=== PATIENT | female | born 1975 | race Caucasian/White ===

== ENCOUNTER 2017-11-23 18:25 | Outpatient (CLI) | payer OTHER ==
[2017-11-23 20:50] LABS: RUPTURE FETAL MEMBRANES NEGATIVE (NEGATIVE)
== END 2017-11-23 21:30 | disposition home or self-care (01) ==
LOC: OBT 18:25 → L-D 18:26 → OBT 21:30
DX: O42.92 Full-term premature rupture of membranes, unspecified as to length of time between rupture and onset of labor (principal); Z3A.38 38 weeks gestation of pregnancy
CPT/HCPCS: 76818; 84112

== ENCOUNTER 2017-11-30 05:09 | Inpatient (IN) | payer OTHER ==
[2017-11-30] MEDS: LACTATED RINGER'S 1,000 ML IV ×4 (06:17→21:19)
[2017-11-30] MEDS: AMPICILLIN 2 GM/NS (PMX) 100 ML IV (06:18)
[2017-11-30 06:29] LABS: ADD MAN DIFF? NO
[2017-11-30] MEDS ORDERED: MISOPROSTOL 200 MCG TAB PR ×2 (06:30→12:30)
[2017-11-30] MEDS ORDERED: OXYTOCIN 30 UNITS/LR 500 ML IV ×2 (06:30→12:30)
[2017-11-30] MEDS ORDERED: METHYLERGONOVINE 0.2 MG INJ IM ×2 (06:30→12:30)
[2017-11-30] MEDS ORDERED: CEFAZOLIN 2 GM/50 ML (PMX) 50 ML IV (06:30)
[2017-11-30] MEDS ORDERED: CARBOPROST 250 MCG INJ IM ×2 (06:30→12:30)
[2017-11-30 06:39] LABS: BASOPHILS % 0.2 % (0.0-2.0); EOSINOPHILS # 0.1 10^3/ul (0.0-0.5); HEMATOCRIT 35.2 % (37.0-47.0); HEMOGLOBIN 11.8 g/dl (12.0-16.0); LYMPHOCYTES # 1.5 10^3/ul (0.8-2.9); LYMPHOCYTES % 15.4 % (15.0-51.0); MEAN CORPUSCULAR HEMOGLOBIN 29.1 pg (29.0-33.0); MEAN CORPUSCULAR HGB CONC 33.5 g/dl (32.0-37.0); MEAN CORPUSCULAR VOLUME 86.9 fl (82.0-101.0); MEAN PLATELET VOLUME 11.5 fl (7.4-10.4); MONOCYTE # 0.9 10^3/ul (0.3-0.9); MONOCYTES % 9.4 % (0.0-11.0); NEUTROPHIL # 7.3 10^3/ul (1.6-7.5); NEUTROPHILS % 73.1 % (39.0-77.0); PLATELET COUNT 123 10^3/UL (140-415); RED BLOOD COUNT 4.05 10^6/ul (4.20-5.40); RED CELL DISTRIBUTION WIDTH 15.9 % (11.5-14.5)
[2017-11-30] MEDS ORDERED: OXYTOCIN 30 UNITS/LR 500 ML BAG IV (07:00)
[2017-11-30 07:33] LABS: AMPHETAMINE/METHAMPHETAMINE Negative (NEGATIVE); BARBITURATES Negative (NEGATIVE); BENZODIAZEPINES Negative (NEGATIVE); CANNABINOIDS Negative (NEGATIVE); COCAINE Negative (NEGATIVE); OPIATES Negative (NEGATIVE)
[2017-11-30 07:38] LABS: INR 0.92; PARTIAL THROMBOPLASTIN TIME 29.7 Sec (25.0-35.0); PROTIME 12.4 Sec (11.9-14.9)
[2017-11-30] MEDS ORDERED: morphine SULFATE/PF (10 MG/10 ML) INJ (08:11)
[2017-11-30] MEDS ORDERED: ONDANSETRON 4 MG INJ (08:11)
[2017-11-30] MEDS ORDERED: PHENYLephrine (100 MCG/ML) 5ML SYG ×3 (08:11→09:02)
[2017-11-30] MEDS ORDERED: OXYTOCIN 10 UNIT INJ (08:11)
[2017-11-30] MEDS ORDERED: FENTAnyl 50 MCG/ML VIAL (08:54)
[2017-11-30] MEDS: OXYTOCIN 30 UNITS/LR 500 ML IV ×2 (09:40→12:11)
[2017-11-30] MEDS: DIPHENHYDRAMINE 50 MG INJ IV ×2 (09:44→21:29)
[2017-11-30] MEDS ORDERED: NALOXONE (0.4 MG/ML) INJ IV (10:00)
[2017-11-30] MEDS ORDERED: morphine 2 MG INJ IV (10:00)
[2017-11-30] MEDS ORDERED: ONDANSETRON 4 MG INJ IV (10:00)
[2017-11-30] MEDS: KETOROLAC 30 MG INJ IV (12:19)
[2017-11-30] MEDS ORDERED: OXYCODONE/ACETAMINOPHEN (5/325) TAB PO (12:30)
[2017-11-30 15:09] LABS: RAPID PLASMA REAGIN NONREACTIVE (NR)
[2017-11-30] MEDS: LANOLIN 7 GM TUBE TOP (16:15)
[2017-11-30] MEDS: SENNA/DOCUSATE NA (8.6MG/50MG) TAB PO (21:19)
[2017-12-01] MEDS: KETOROLAC 30 MG INJ IV ×2 (03:25→09:17)
[2017-12-01] MEDS: DIPHENHYDRAMINE 50 MG INJ IV (03:26)
[2017-12-01] MEDS: LACTATED RINGER'S 1,000 ML IV ×3 (05:53→20:11)
[2017-12-01] MEDS: SENNA/DOCUSATE NA (8.6MG/50MG) TAB PO ×2 (09:17→21:44)
[2017-12-01 09:48] LABS: ADD MAN DIFF? NO
[2017-12-01 10:02] LABS: BASOPHILS % 0.2 % (0.0-2.0); EOSINOPHILS % 0.5 % (0.0-7.0); HEMATOCRIT 28.3 % (37.0-47.0); HEMOGLOBIN 9.4 g/dl (12.0-16.0); LYMPHOCYTES # 1.1 10^3/ul (0.8-2.9); LYMPHOCYTES % 12.5 % (15.0-51.0); MEAN CORPUSCULAR HEMOGLOBIN 29.2 pg (29.0-33.0); MEAN CORPUSCULAR HGB CONC 33.2 g/dl (32.0-37.0); MEAN CORPUSCULAR VOLUME 87.9 fl (82.0-101.0); MEAN PLATELET VOLUME 11.5 fl (7.4-10.4); MONOCYTE # 0.7 10^3/ul (0.3-0.9); MONOCYTES % 7.6 % (0.0-11.0); NEUTROPHIL # 6.9 10^3/ul (1.6-7.5); NEUTROPHILS % 78.6 % (39.0-77.0); PLATELET COUNT 124 10^3/UL (140-415); RED BLOOD COUNT 3.22 10^6/ul (4.20-5.40); RED CELL DISTRIBUTION WIDTH 16.1 % (11.5-14.5)
[2017-12-01 10:02] LABS: WHITE BLOOD COUNT 8.8 10^3/ul (4.8-10.8)
[2017-12-01] MEDS: IBUPROFEN 800 MG TAB PO ×2 (17:37→21:44)
[2017-12-01] MEDS: INFLUENZA VIRUS VACCINE 0.5 ML (DISPENSING) IM* (18:24)
[2017-12-02] MEDS: IBUPROFEN 800 MG TAB PO ×3 (05:37→22:20)
[2017-12-02] MEDS: SENNA/DOCUSATE NA (8.6MG/50MG) TAB PO ×2 (09:00→21:20)
[2017-12-03] MEDS: IBUPROFEN 800 MG TAB PO (05:32)
[2017-12-03] MEDS: SENNA/DOCUSATE NA (8.6MG/50MG) TAB PO (09:46)
[2017-12-03] MEDS: OXYCODONE/ACETAMINOPHEN (5/325) TAB PO (10:00)
[2017-12-03] MEDS: DIPHTH/TET/ACEL PERTUSS (ADULT) 0.5 ML VIAL IM* (11:55)
== END 2017-12-03 13:25 | disposition home or self-care (01) | DRG 766 ==
LOC: L-D 05:09 → PP1 12:09
PROVIDERS: Obstetrics & Gynecology
PROC: 10D00Z1 Extraction of Products of Conception, Low, Open Approach (ICD-10-PCS; principal; 2017-11-30 07:30)
PROC: 3E033VJ Introduction of Other Hormone into Peripheral Vein, Percutaneous Approach (ICD-10-PCS; 2017-11-30 07:30)
DX: O34.211 Maternal care for low transverse scar from previous cesarean delivery (principal); Z37.0 Single live birth; Z3A.39 39 weeks gestation of pregnancy
CPT/HCPCS: 80307; 85025; 85610; 85730; 86592; 86850; 86900; 86901; 90686; 90715

== ENCOUNTER 2018-11-05 13:27 | Emergency (ER) | payer OTHER ==
[2018-11-05 14:29] LABS: ADD MAN DIFF? NO
[2018-11-05] MEDS: LIDOCAINE/MYLANTA 40 ML BTL PO (14:34)
[2018-11-05] MEDS: SOD CHLORIDE 0.9% 1,000 ML IV (14:35)
[2018-11-05] MEDS: morphine 4 MG/ML VIAL IV (14:35)
[2018-11-05] MEDS: FAMOTIDINE 20 MG INJ IV (14:35)
[2018-11-05] MEDS: METOCLOPRAMIDE 10 MG INJ IV (14:35)
[2018-11-05 14:36] LABS: WHITE BLOOD COUNT 8.3 10^3/ul (4.8-10.8)
[2018-11-05 14:36] LABS: BASOPHIL # 0.1 10^3/ul (0.0-0.1); BASOPHILS % 0.6 % (0.0-2.0); EOSINOPHILS % 0.5 % (0.0-7.0); HEMATOCRIT 43.8 % (37.0-47.0); HEMOGLOBIN 14.4 g/dl (12.0-16.0); LYMPHOCYTES # 1.3 10^3/ul (0.8-2.9); LYMPHOCYTES % 15.7 % (15.0-51.0); MEAN CORPUSCULAR HEMOGLOBIN 28.5 pg (29.0-33.0); MEAN CORPUSCULAR HGB CONC 32.9 g/dl (32.0-37.0); MEAN CORPUSCULAR VOLUME 86.6 fl (82.0-101.0); MEAN PLATELET VOLUME 9.7 fl (7.4-10.4); MONOCYTE # 0.6 10^3/ul (0.3-0.9); NEUTROPHIL # 6.3 10^3/ul (1.6-7.5); NEUTROPHILS % 75.8 % (39.0-77.0); PLATELET COUNT 258 10^3/UL (140-415); RED BLOOD COUNT 5.06 10^6/ul (4.20-5.40); RED CELL DISTRIBUTION WIDTH 12.7 % (11.5-14.5)
[2018-11-05 14:51] LABS: ALANINE AMINOTRANSFERASE 8 IU/L (13-69); ALBUMIN 4.6 g/dl (3.3-4.9); ALBUMIN/GLOBULIN RATIO 1.15; ALKALINE PHOSPHATASE 106 IU/L (42-121); ANION GAP 11 (5-13); ASPARTATE AMINO TRANSFERASE 29 IU/L (15-46); BILIRUBIN,INDIRECT 0.3 mg/dl (0-1.1); BILIRUBIN,TOTAL 0.3 mg/dl (0.2-1.3); BLOOD UREA NITROGEN 11 mg/dl (7-20); CALCIUM 9.9 mg/dl (8.4-10.2); CARBON DIOXIDE 29 mmol/L (21-31); CHLORIDE 102 mmol/L (97-110); CREATININE 0.66 mg/dl (0.44-1.00); Estimated GFR > 60 mL/min (>60); GLUCOSE 116 mg/dl (70-220); LIPASE 58 U/L (23-300); POTASSIUM 4.2 mmol/L (3.5-5.1); SODIUM 142 mmol/L (135-144); TOTAL PROTEIN 8.6 g/dl (6.1-8.1)
== END 2018-11-05 16:05 | disposition home or self-care (01) ==
LOC: E/R 13:27
DX: K29.50 Unspecified chronic gastritis without bleeding (principal); R40.2142 Coma scale, eyes open, spontaneous, at arrival to emergency department; R40.2362 Coma scale, best motor response, obeys commands, at arrival to emergency department; R40.2252 Coma scale, best verbal response, oriented, at arrival to emergency department
CPT/HCPCS: 36415; 80053; 83690; 84703; 85025; 96374; 96375; 99284-25

== ENCOUNTER 2018-12-12 11:27 | Emergency (ER) | payer OTHER ==
[2018-12-12] MEDS: IBUPROFEN 600 MG TAB PO (14:07)
== END 2018-12-12 15:36 | disposition home or self-care (01) ==
LOC: FTE 11:27
DX: M79.602 Pain in left arm (principal); F17.210 Nicotine dependence, cigarettes, uncomplicated
CPT/HCPCS: 71045; 72040; 99284-25

== ENCOUNTER 2019-01-01 05:42 | Day surgery (SDC) | payer OTHER ==
[2019-01-01] MEDS ORDERED: FENTAnyl 50 MCG/ML VIAL (08:20)
[2019-01-01] MEDS ORDERED: MIDAZOLAM 1 MG/ML 2 ML INJ ×2 (08:20→08:21)
== END 2019-01-03 11:47 | disposition home or self-care (01) ==
LOC: GIL 05:42
DX: K29.50 Unspecified chronic gastritis without bleeding (principal); K21.9 Gastro-esophageal reflux disease without esophagitis
CPT/HCPCS: 43239; 84703; 88305; 88312